=== PATIENT | male | born 1995 | race Hispanic/Latino ===

== ENCOUNTER 2019-04-21 00:39 | Inpatient (IN) | payer BC ==
[2019-04-21 01:10] LABS: Hemoglobin 16.1 g/dL (14.0-18.0); Mean Corpuscular HGB CONC 35.4 g/dL (32.0-36.0); Mean Corpuscular Hemoglobin 30.8 pg (27.0-31.0); Mean Corpuscular Volume 86.8 fL (78.0-98.0); Mean Platelet Volume 9.2 fL (7.4-10.4); Platelet Count 260 thou/uL (130-400); RBC Distribution Width 11.8 % (11.5-14.5); Red Blood Cell (RBC) Count 5.24 mill/uL (4.70-6.10); White Blood Cell (WBC) Count 22.4 thou/uL (4.8-10.8)
[2019-04-21] MEDS ORDERED: Ondansetron PF 4 MG/2 ML Vial ONE (01:22)
[2019-04-21 01:25] LABS: ALT (SGPT) 52 U/L (8-55); AST (SGOT) 45 U/L (5-34); Acetaminophen Less than 6.0 mcg/mL (10.0-30.0); Albumin 4.4 g/dL (3.5-5.0); Alcohol Less than 10 mg/dL (Less than 10); Alkaline Phosphatase 160 U/L (40-150); Anion Gap 12 mmol/L (10-20); BUN (Urea Nitrogen) 14 mg/dL (8.9-20.6); Bilirubin, Total 0.3 mg/dL (0.2-1.2); Calc. Creatinine Clearance 0 mL/min (70-130); Calcium 8.9 mg/dL (7.8-10.44); Carbon Dioxide 23 mmol/L (22-29); Chloride 107 mmol/L (98-107); Estimated GFR-MDRD Greater than 90; Globulin 2.9 g/dL (2.4-3.5); Glucose 207 mg/dL (70-105); Potassium 3.2 mmol/L (3.5-5.1); Protein, Total 7.3 g/dL (6.0-8.3); Salicylate Less than 8.0 mg/dL (15.0-30.0); Sodium 139 mmol/L (136-145)
[2019-04-21 01:26] LABS: Band 5 % (5-11); Eosinophils 1 % (0-10); Lymphocytes 22 % (21-51); MDiff Complete? YES; Monocytes 3 % (0-10); Neutrophil 67 % (42-75); Reactive Lymphocytes 2 % (0-10)
[2019-04-21] MEDS ORDERED: Morphine 4 MG/ML VIAL ONE (01:52)
[2019-04-21] MEDS ORDERED: PROPOFOL 40 ML ONE (01:54)
[2019-04-21] MEDS ORDERED: hydrALAZINE 20 MG/ML VIAL SLOW IVP PRN (01:58)
[2019-04-21] MEDS ORDERED: Dextrose 5% in Water 1,000 ML IV PRN (01:58)
[2019-04-21] MEDS ORDERED: Dextrose 50% Abboject 50 ML SYRINGE SLOW IVP PRN (01:58)
[2019-04-21 02:29] LABS: Magnesium 1.9 mg/dL (1.6-2.6); Phosphorus 3.2 mg/dL (2.3-4.7)
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
[2019-04-21] MEDS ORDERED: Potassium Phosphate 30 MMOL in Sodium Chloride 0.9% 500 ML IVPB SCH (04:30)
[2019-04-21 04:46] VITALS: BMI 38.2
[2019-04-21] MEDS: Morphine 2 MG/ML SYRINGE SLOW IVP PRN ×4 (05:15→17:20)
[2019-04-21] MEDS: Sodium Chloride 0.9% 1,000 ML IV SCH ×2 (05:22→13:27)
[2019-04-21] MEDS: Acetaminophen 1,000 MG in Premix Bag 1 BAG IVPB SCH ×2 (06:44→13:24)
[2019-04-21 07:49] LABS: Hemoglobin A1c 5.1 % (4.0-6.0)
[2019-04-21 07:58] LABS: Hemoglobin 14.8 g/dL (14.0-18.0)
[2019-04-21 08:01] LABS: Anion Gap 13 mmol/L (10-20); BUN (Urea Nitrogen) 12 mg/dL (8.9-20.6); Calc. Creatinine Clearance 253 mL/min (70-130); Calcium 8.7 mg/dL (7.8-10.44); Carbon Dioxide 22 mmol/L (22-29); Chloride 107 mmol/L (98-107); Estimated GFR-MDRD Greater than 90; Glucose 147 mg/dL (70-105); Sodium 138 mmol/L (136-145)
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
--- NOTE | 2019-04-21 08:10 | RAD ---
Supine frontal chest radiograph: 04/21/2019 COMPARISON: None HISTORY: Injury, trauma, pain FINDINGS: Minimal increased linear density noted in the medial right lung apex. Supine imaging limits assessment for pneumothorax and pleural fluid. No focal consolidation. Right shoulder dislocation. Recommend dedicated right shoulder radiographs. IMPRESSION: Dislocation of the right glenohumeral joint.
--- NOTE | 2019-04-21 08:11 | RAD ---
2 views right shoulder: 04/21/2019 1:29 AM HISTORY: Injury, trauma, pain FINDINGS: There is an inferior anterior dislocation of the glenohumeral joint on the right. No wideni ng of the acromioclavicular or coracoclavicular interspace. IMPRESSION: Dislocated right shoulder.
--- NOTE | 2019-04-21 08:17 | RAD ---
2 views right shoulder: 04/21/2019 at 2:23 AM and 2:35 AM COMPARISON: 04/21/2019 at 1:29 AM HISTORY: Right shoulder dislocation FINDINGS: The imaged provided at 2:23 AM demonstrates persistent inferior dislocation of the right gl enohumeral joint. A second image at 2:35 AM suggests interval reduction. Glenohumeral relationship is not fully assessed however as no scapular Y view or axillary view is provided. IMPRESSION: Limited imaging of the right shoulder as detailed above.
[2019-04-21] MEDS ORDERED: HYDROmorphone 0.5 MG/0.5 ML SYRINGE SLOW IVP SCH (08:45)
[2019-04-21] MEDS ORDERED: Ketorolac Tromethamine 30 MG/ML VIAL IVP SCH (08:45)
--- NOTE | 2019-04-21 08:46 | RAD ---
RIGHT SHOULDER TWO VIEWS: INDICATIONS: Dislocation. FINDINGS: There is an anterior shoulder dislocation. No fracture identified. AC joint is normally aligned. POS: OFF
[2019-04-21] MEDS ORDERED: Famotidine/PF 20 mg/2ml Vial SLOW IVP SCH (09:00)
[2019-04-21] MEDS ORDERED: Midazolam HCl 2 mg/2 ml Vial ONE (09:43)
[2019-04-21] MEDS ORDERED: Fentanyl 100 MCG/2 ML VIAL ONE (09:48)
[2019-04-21] MEDS ORDERED: ISOVUE-370 76%-LOCM 1 ML ONE (11:02)
--- NOTE | 2019-04-21 11:22 | RAD ---
RIGHT SHOULDER 2 VIEWS: Date: 04/21/19 HISTORY: Shoulder dislocation. COMPARISON: Earlier exam same date. FINDINGS: The anterior shoulder dislocation has been reduced and is in satisfactory position. IMPRESSION: Reduction of shoulder dislocation. POS: TPC
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
[2019-04-21] MEDS ORDERED: traMADol HCl 50 MG TAB PO PRN ×4 (14:28→21:05)
[2019-04-21] MEDS ORDERED: Ibuprofen 600 MG TAB PO PRN (14:28)
[2019-04-21] MEDS ORDERED: Gabapentin 100 MG CAP PO PRN (17:59)
[2019-04-21] MEDS ORDERED: Cyclobenzaprine 10 MG TAB PO PRN (17:59)
[2019-04-21] MEDS ORDERED: traMADol HCl 50 MG TAB PO SCH (18:00)
[2019-04-21] MEDS: Acetaminophen 500 MG TAB PO SCH (19:14)
[2019-04-21] MEDS: Ibuprofen 600 MG TAB PO SCH (19:16)
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
[2019-04-22] MEDS: Ibuprofen 600 MG TAB PO SCH ×4 (00:39→17:31)
[2019-04-22] MEDS: Acetaminophen 500 MG TAB PO SCH ×4 (00:40→17:31)
[2019-04-22] MEDS: traMADol HCl 50 MG TAB PO SCH ×3 (08:25→19:54)
[2019-04-22] MEDS: Gabapentin 100 MG CAP PO SCH ×3 (08:41→19:54)
[2019-04-22] MEDS: Enoxaparin Sodium 30 MG/0.3 ML SYRINGE SC SCH ×2 (08:41→19:55)
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
[2019-04-22] MEDS: Ondansetron PF 4 MG/2 ML Vial IVP PRN (15:36)
[2019-04-22] MEDS: Cyclobenzaprine 10 MG TAB PO PRN (17:31)
[2019-04-23] MEDS: traMADol HCl 50 MG TAB PO SCH ×4 (01:14→20:32)
[2019-04-23] MEDS: Acetaminophen 500 MG TAB PO SCH ×5 (01:14→23:22)
[2019-04-23] MEDS: Ibuprofen 600 MG TAB PO SCH ×5 (01:14→23:22)
[2019-04-23] MEDS: Cyclobenzaprine 10 MG TAB PO PRN ×2 (01:16→07:57)
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
[2019-04-23 05:43] LABS: #Eosinphils 0.1 thou/uL (0.0-0.7); #Lymphocytes 1.6 thou/uL (1.20-3.40); #Monocytes 0.3 thou/uL (0.11-0.59); #Neutrophils 3.6 thou/uL (1.40-6.50); %Basophils 0.6 % (0.0-1.0); %Eosinophils 1.1 % (0.0-10.0); %Monocytes 5.9 % (0.0-10.0); %Neutrophils 64.4 % (42.0-75.0); Hemoglobin 12.8 g/dL (14.0-18.0); Mean Corpuscular Hemoglobin 30.8 pg (27.0-31.0); Mean Corpuscular Volume 88.1 fL (78.0-98.0); Mean Platelet Volume 8.9 fL (7.4-10.4); Platelet Count 141 thou/uL (130-400); RBC Distribution Width 11.6 % (11.5-14.5); Red Blood Cell (RBC) Count 4.16 mill/uL (4.70-6.10); White Blood Cell (WBC) Count 5.6 thou/uL (4.8-10.8)
[2019-04-23] MEDS: Gabapentin 100 MG CAP PO SCH ×3 (07:56→20:33)
[2019-04-23] MEDS: Enoxaparin Sodium 30 MG/0.3 ML SYRINGE SC SCH ×2 (07:58→20:33)
[2019-04-23] MEDS ORDERED: Polyethylene Glycol 3350 17 GM Packet PO SCH (13:15)
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
[2019-04-23] MEDS: Senokot S 8.6-50 MG TAB PO SCH (20:33)
[2019-04-24] MEDS: traMADol HCl 50 MG TAB PO SCH ×3 (02:18→13:14)
[2019-04-24] MEDS: Acetaminophen 500 MG TAB PO SCH ×2 (06:26→11:37)
[2019-04-24] MEDS: Ibuprofen 600 MG TAB PO SCH (06:27)
[2019-04-24] MEDS ORDERED: Ibuprofen 600 MG TAB PO PRN (08:45)
[2019-04-24] MEDS: Enoxaparin Sodium 30 MG/0.3 ML SYRINGE SC SCH (08:46)
[2019-04-24] MEDS: Senokot S 8.6-50 MG TAB PO SCH (08:48)
[2019-04-24] MEDS: Gabapentin 100 MG CAP PO SCH ×2 (08:48→13:14)
[2019-04-24] MEDS ORDERED: Bisacodyl 10 MG SUPP PR SCH (09:00)
[2019-04-24] MEDS ORDERED: Polyethylene Glycol 3350 17 GM Packet PO SCH ×2 (09:00)
[2019-04-24] MEDS: Ondansetron PF 4 MG/2 ML Vial IVP PRN (09:55)
[2019-04-24 11:24] VITALS: BP 149/85; TEMP 98
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
== END 2019-04-24 13:40 | disposition home or self-care (01) | DRG 964 ==
LOC: ERS 00:39 → IMCU/EMU 01:58 → SJJU 04-22 16:35
PROVIDERS: ADMIT Specialist; ATTEND Specialist
PROC: 0RSJXZZ Reposition Right Shoulder Joint, External Approach (ICD-10-PCS; principal; 2019-04-21)
DX: S36.031A Moderate laceration of spleen, initial encounter (principal); S32.048A Other fracture of fourth lumbar vertebra, initial encounter for closed fracture; S32.10XA Unspecified fracture of sacrum, initial encounter for closed fracture; S43.004A Unspecified dislocation of right shoulder joint, initial encounter; S30.0XXA Contusion of lower back and pelvis, initial encounter; E87.6 Hypokalemia; S61.411A Laceration without foreign body of right hand, initial encounter; V89.2XXA Person injured in unspecified motor-vehicle accident, traffic, initial encounter; Y92.415 Exit ramp or entrance ramp of street or highway as the place of occurrence of the external cause
CPT/HCPCS: 36415; 70450; 71045; 71260; 72125; 72170; 74177; 80053; 80307; 83036; 83735; 84100; 85025; 86850; 86900; 86901; G0390; J0131; J1170; J1650; J1885; J2250; J2270; J2405; J2704; J3010; J7050; S0028